=== PATIENT | male | born 1945 | race African-American/Black ===

== ENCOUNTER 2019-12-10 12:19 | Inpatient (IN) | payer OTHER ==
[~2019-12-10] VITALS: Ht 167.6 cm; Wt 85.0 kg
[~2019-12-10 12:19] MED LIST: LISHYD1012 PO; OMEP10ER PO
[2019-12-10] MEDS ORDERED: CHLO25B PO (12:44)
[2019-12-10] MEDS ORDERED: SILD25T PO (12:45)
[2019-12-10] MEDS ORDERED: CLOP75 PO (12:45)
[2019-12-10] MEDS ORDERED: LOSA25 (12:45)
[2019-12-10 13:02] LABS: BASOPHILS ABSOLUTE AUTO 0.03 K/mm3 (0.00-0.23); BASOPHILS PERCENT AUTO 0 % (0-2); EOSINOPHILS ABSOLUTE AUTO 0.08 K/mm3 (0.00-0.68); EOSINOPHILS PERCENT AUTO 1 % (0-6); Hemoglobin 19.3 g/dL (13.5-17.5); IMMATURE GRAN ABSOLUTE AUTO 0.02 K/mm3 (0.00-0.10); IMMATURE GRAN PERCENT AUTO 0 % (0-1); LYMPHOCYTES ABSOLUTE AUTO 3.77 K/mm3 (0.84-5.20); LYMPHOCYTES PERCENT AUTO 34 % (21-46); MONOCYTES ABSOLUTE AUTO 0.67 K/mm3 (0.16-1.47); MONOCYTES PERCENT AUTO 6 % (4-13); Mean Corpuscular HGB 29.8 pg (26.0-34.0); Mean Corpuscular HGB Conc 33.6 g/dL (31.5-36.5); Mean Corpuscular Volume 89 fL (80-100); Mean Platelet Volume 11.3 fL (9.1-12.4); NEUTROPHILS ABSOLUTE AUTO 6.62 K/mm3 (1.96-9.15); NEUTROPHILS PERCENT AUTO 59 % (41-73); Platelet Count 283 K/mm3 (150-400); RDW Coefficient Variation 14.8 % (11.7-14.2); RDW Standard Deviation 44.3 fL (35.1-46.3); Red Blood Cell Count 6.48 M/mm3 (4.30-5.90); White Blood Cell Count 11.19 K/mm3 (4.00-11.30)
[2019-12-10 13:03] LABS: Hematocrit 57.4 % (37.0-53.0)
[2019-12-10 14:43] LABS: Albumin, Blood 3.5 g/dL (3.4-5.0); Calcium, Blood 9.4 mg/dL (8.5-10.1); Potassium, Blood 3.3 mmol/L (3.5-5.5)
[2019-12-10 14:55] LABS: Albumin/Globulin Ratio 0.8 (0.8-1.8); Bilirubin, Total 0.6 mg/dL (0.1-1.0); Bun/Creatinine Ratio 10.9 (12.0-20.0); Creatinine, Blood 1.29 mg/dL (0.60-1.20); Globulin, Blood 4.5 g/dL (2.2-4.0); Troponin I 36.6 ng/mL (0.000-0.040)
[2019-12-10] MEDS ORDERED: Nitrostat0.4 MG SL (15:13)
--- NOTE | 2019-12-10 18:21 | NUR ---
PT ADMITTED TO ICU AT 1805 FROM THE S/P ANGIOGRAM. THE LAD/CIRC/RCA ARE OCCLUDED PER N AND PT WILL NEED TO BE TRANSFERED TO [facility] FOR CABG. PT DENIES C/O CHEST PAIN/CHES PRESSURE. PT DENIES NAUSEA/SOB. PT SOMEWHAT HTN. PT IN SINUS RHYTHM W DEPRESSED ST IN LEAD II. TEAM LEAD AT BEDSIDE. K+ INFUSION COMPLETE.
--- NOTE | 2019-12-10 18:27 | NUR ---
DR CHEN CALLED TO NOTIFY THIS RN THAT PT WILL NOT BE TRANSFERED AT THIS TIME. PLAN IS TO RETURN TO [employer] CHIEF SCIENTIST FOR PCI WITH STENTING OF THE OCCLUDED VESSELS. HEPARIN GTT TO BE STARTED AFTER TR BAND OFF AND WRIST STABLE.
--- NOTE | 2019-12-10 18:51 | NUR ---
Echocardiogram completed.
[2019-12-10 21:59] LABS: International Normalized Ratio 1.03
--- NOTE | 2019-12-10 22:54 | NUR ---
Received pt at 1900 from offgoing RN at bedside. pt participated in bedside report. ITRACE done. No fluids running. Orders clarified with doctor Mikaela Albright.
[2019-12-11 03:34] LABS: BASOPHILS ABSOLUTE AUTO 0.03 K/mm3 (0.00-0.23); BASOPHILS PERCENT AUTO 0 % (0-2); EOSINOPHILS ABSOLUTE AUTO 0.05 K/mm3 (0.00-0.68); EOSINOPHILS PERCENT AUTO 0 % (0-6); Hematocrit 50.8 % (37.0-53.0); Hemoglobin 16.6 g/dL (13.5-17.5); IMMATURE GRAN ABSOLUTE AUTO 0.03 K/mm3 (0.00-0.10); IMMATURE GRAN PERCENT AUTO 0 % (0-1); LYMPHOCYTES ABSOLUTE AUTO 2.45 K/mm3 (0.84-5.20); LYMPHOCYTES PERCENT AUTO 21 % (21-46); MONOCYTES ABSOLUTE AUTO 0.83 K/mm3 (0.16-1.47); MONOCYTES PERCENT AUTO 7 % (4-13); Mean Corpuscular HGB 28.8 pg (26.0-34.0); Mean Corpuscular HGB Conc 32.7 g/dL (31.5-36.5); Mean Corpuscular Volume 88 fL (80-100); Mean Platelet Volume 10.1 fL (9.1-12.4); NEUTROPHILS ABSOLUTE AUTO 8.37 K/mm3 (1.96-9.15); NEUTROPHILS PERCENT AUTO 71 % (41-73); Platelet Count 206 K/mm3 (150-400); RDW Coefficient Variation 13.7 % (11.7-14.2); RDW Standard Deviation 44.4 fL (35.1-46.3); Red Blood Cell Count 5.77 M/mm3 (4.30-5.90); White Blood Cell Count 11.76 K/mm3 (4.00-11.30)
[2019-12-11 03:57] LABS: Alanine Aminotransfer (ALT/SGP 27 U/L (12-78); Albumin, Blood 2.9 g/dL (3.4-5.0); Albumin/Globulin Ratio 0.8 (0.8-1.8); Alk Phos 58 U/L (50-136); Anion Gap 6 mmol/L (6-16); Aspartate Aminotrans (AST/SGOT 41 U/L (12-37); Bilirubin, Total 0.5 mg/dL (0.1-1.0); Blood Urea Nitrogen 17 mg/dL (8-24); Bun/Creatinine Ratio 14.8 (12.0-20.0); CHOL/HDL RATIO 4.7; CO2, Blood 28 mmol/L (21-32); Calcium, Blood 8.6 mg/dL (8.5-10.1); Chloride, Blood 106 mmol/L (98-108); Cholesterol 182 mg/dL (50-200); Creatinine, Blood 1.15 mg/dL (0.60-1.20); Globulin, Blood 3.8 g/dL (2.2-4.0); Glomerular Filtration Rate >60 (60-); Glucose, Blood 120 mg/dL (70-99); HDL Cholesterol 39 mg/dL (>39); LDL/HDL RATIO 2.8; Low Density Lipoprotein Chol 110 mg/dL (0-110); Potassium, Blood 3.1 mmol/L (3.5-5.5); Sodium, Blood 140 mmol/L (136-145); Total Protein, Blood 6.7 g/dL (6.4-8.2); Triglycerides 165 mg/dL (30-160); Very Low Density Lipoprot Chol 33 mg/dL (6-32)
--- NOTE | 2019-12-11 06:22 | NUR ---
PT SLEEPING IN BETWEEN FREQUENT CHECKS. PT TURNS SELF FREQUENTLY, IS NOW SLEEPING WITH MULTIPLE PILLOWS. ARMBOARD STILL AT RADIAL SITE, WILL REMOVE WITH HOURLY CHECKS AND NEXT RN TOGETHER. HEPARIN GTT RUNNING IN LEFT AC, NORMAL SALINE INTO RIGHT AC.
--- NOTE | 2019-12-11 08:23 | NUR ---
ASSUMED CARE RECEIVED REPORT FROM MYLENE KNUTSON. PT IS ALERT AND ORIENTED TO SELF, PLACE, SITUATION AND IS LYING IN BED S/P CATH. HIS RIGHT RADIAL SITE LOOKS WNL, NO HEMATOMA FORMATION, 2+ PULSE, NO PAIN OUT OF PROPORTION, BUT IS TENDER. NO ACTIVE BLEEDING. HE HAS NUMBNESS TINGLING THAT IS PRESENT AT BASELINE. PT IS ON ROOM AIR. STABLE VITALS, ALTHOUGH ELEVATED BP. BED LOW AND LOCKED. CALL LIGHT WITHIN REACH.
--- NOTE | 2019-12-11 18:11 | NUR ---
SHIFT SUMMARY PT REMAINS ALERT AND ORIENTED X 4. ON ROOM AIR. RIGHT RADIAL SITE IS WNL. HE IS INDEPENDENT IN BED/ROOM, VOIDING ADEQUETLY. GOOD APPETITE. HE IS ON A HEPARIN GTTP AT 15 UNITS/KG/HR. BED LOW AND LOCKED. CALL LIGHT WITHIN REACH.
--- NOTE | 2019-12-12 02:46 | NUR ---
START OF SHIFT: BEDSIDE REPORT FROM ESTUARDO CHAKRABORTY AT CHANGE OF SHIFT. PT A+O X4 WATCHING TV. VSS. LS CLEAR, SATS 100% ON RA. PT WITH NO REQUESTS AT THAT TIME AND USES CALL LIGHT APPROPRIATELY FOR WHEN NEEDING TO VOID. PT STANDS AT SIDE OF BED TO USE URINAL AND TOLERATES WELL. PT WITH VERBAL UNDERSTANDING OF UPCOMING PROCEDURE. PT NPO AFTER MIDNIGHT. CALL LIGHT WITHING REACH.
[2019-12-12 09:02] LABS: BASOPHILS ABSOLUTE AUTO 0.03 K/mm3 (0.00-0.23); BASOPHILS PERCENT AUTO 0 % (0-2); EOSINOPHILS ABSOLUTE AUTO 0.17 K/mm3 (0.00-0.68); EOSINOPHILS PERCENT AUTO 2 % (0-6); Hemoglobin 15.8 g/dL (13.5-17.5); IMMATURE GRAN ABSOLUTE AUTO 0.02 K/mm3 (0.00-0.10); IMMATURE GRAN PERCENT AUTO 0 % (0-1); LYMPHOCYTES ABSOLUTE AUTO 3.17 K/mm3 (0.84-5.20); LYMPHOCYTES PERCENT AUTO 34 % (21-46); MONOCYTES ABSOLUTE AUTO 0.65 K/mm3 (0.16-1.47); MONOCYTES PERCENT AUTO 7 % (4-13); Mean Corpuscular HGB 29.9 pg (26.0-34.0); Mean Corpuscular HGB Conc 33.6 g/dL (31.5-36.5); Mean Corpuscular Volume 89 fL (80-100); Mean Platelet Volume 10.3 fL (9.1-12.4); NEUTROPHILS ABSOLUTE AUTO 5.24 K/mm3 (1.96-9.15); NEUTROPHILS PERCENT AUTO 57 % (41-73); Platelet Count 180 K/mm3 (150-400); RDW Coefficient Variation 13.7 % (11.7-14.2); RDW Standard Deviation 44.4 fL (35.1-46.3); Red Blood Cell Count 5.29 M/mm3 (4.30-5.90); White Blood Cell Count 9.28 K/mm3 (4.00-11.30)
[2019-12-12 09:21] LABS: Anion Gap 5 mmol/L (6-16); Blood Urea Nitrogen 14 mg/dL (8-24); CO2, Blood 28 mmol/L (21-32); Calcium, Blood 8.9 mg/dL (8.5-10.1); Chloride, Blood 107 mmol/L (98-108); Creatinine, Blood 1.08 mg/dL (0.60-1.20); Glomerular Filtration Rate >60 (60-); Glucose, Blood 92 mg/dL (70-99); Potassium, Blood 3.4 mmol/L (3.5-5.5); Sodium, Blood 140 mmol/L (136-145)
--- NOTE | 2019-12-12 09:25 | NUR ---
CARE ASSUMED CARE AND REPORT ASSUMED FROM ADARSH Muller RN. PT SITTING UP IN BED. DENIES CHEST PAIN; DENIES PAIN. R WRIST PUNCTURE SITE C/D/I. ARMBOARD REMOVED. PT C/O NUMBNESS AND TINGLING AT BASELINE FROM PREVIOUS CVA. SEEN BY APRIL THIS AM, CONSENTS SIGNED, AWAITING PATROL MAN. VSS. HEPARIN GTT INFUSING AT 15 UNITS/HR PER ORDER. NSR, HR 70S. BP WNL. BP MEDS HELD THIS AM DUE TO BP 120/70S. WILL CONTINUE TO MONITOR.
--- NOTE | 2019-12-12 12:02 | NUR ---
TRANSFERRED TO HOME APPLIANCE WASHING MACHINE MECHANIC 1130 - PT TRANSFERRED TO HOME APPLIANCE WASHING MACHINE MECHANIC BY HOME APPLIANCE WASHING MACHINE MECHANIC RN. HEPARIN GTT AND K+ REPLACEMENT INFUSING UPON UNIT EXIT.
--- NOTE | 2019-12-12 14:23 | NUR ---
RETURN FROM BANKRUPTCY LEGAL ASSISTANT 1350 - PT RETURNS FROM BANKRUPTCY LEGAL ASSISTANT. VSS. TR BAND INFLATED AND SECURED WITH ARMBOARD. BLEEDING CONTROLLED AND PULSES PALPABLE. DENIES CHEST PAIN. HEPARIN DISCONTINUED. POTASSIUM REPLACEMENT FINISHING INFUSION. WILL CONTINUE TO MONITOR.
--- NOTE | 2019-12-12 18:22 | NUR ---
SHIFT SUMMARY PT WAS NPO THIS AM UNTIL HE WAS SENT TO SIDE GLUER AT 1130. HE ARRIVED BACK IN THE UNIT AT 1350 WITH TR BAND SECURED. HEPARIN GTT DISCONTINUED AT THIS TIME. TR BAND REMOVED AT 1600 AND DRESSING APPLIED. ARM REMAINS SECURED IN ARMBOARD AND PT AWARE OF NOT MOVING THE ARM. VSS. NSR, HR 80S. PT NOW COMPLAINS OF MILD CENTRAL CHEST PAIN, 3/10. TYLENOL PO GIVEN. AFEBRILE THROUGHOUT SHIFT. WILL GIVE BEDSIDE, HANDOFF REPORT TO MITCHEL RN.
--- NOTE | 2019-12-12 20:10 | NUR ---
ASSUMED CARE OF PT AT 1900. PT SITTING UP IN BED, IN GOOD SPIRITS, JOKING WITH STAFF. PT STATES ONL RESIDUAL SORENESS IN CHEST AND PROCEDURE SITE, RIGHT RADIAL.
[2019-12-13 03:54] LABS: BASOPHILS ABSOLUTE AUTO 0.03 K/mm3 (0.00-0.23); BASOPHILS PERCENT AUTO 0 % (0-2); EOSINOPHILS ABSOLUTE AUTO 0.23 K/mm3 (0.00-0.68); EOSINOPHILS PERCENT AUTO 3 % (0-6); Hematocrit 46.8 % (37.0-53.0); Hemoglobin 15.3 g/dL (13.5-17.5); IMMATURE GRAN ABSOLUTE AUTO 0.02 K/mm3 (0.00-0.10); IMMATURE GRAN PERCENT AUTO 0 % (0-1); LYMPHOCYTES ABSOLUTE AUTO 3.13 K/mm3 (0.84-5.20); LYMPHOCYTES PERCENT AUTO 34 % (21-46); MONOCYTES ABSOLUTE AUTO 0.68 K/mm3 (0.16-1.47); MONOCYTES PERCENT AUTO 7 % (4-13); Mean Corpuscular HGB 29.1 pg (26.0-34.0); Mean Corpuscular HGB Conc 32.7 g/dL (31.5-36.5); Mean Corpuscular Volume 89 fL (80-100); Mean Platelet Volume 10.8 fL (9.1-12.4); NEUTROPHILS ABSOLUTE AUTO 5.19 K/mm3 (1.96-9.15); NEUTROPHILS PERCENT AUTO 56 % (41-73); Platelet Count 181 K/mm3 (150-400); RDW Coefficient Variation 13.5 % (11.7-14.2); RDW Standard Deviation 44.4 fL (35.1-46.3); Red Blood Cell Count 5.25 M/mm3 (4.30-5.90); White Blood Cell Count 9.28 K/mm3 (4.00-11.30)
[2019-12-13 04:14] LABS: Anion Gap 7 mmol/L (6-16); Blood Urea Nitrogen 13 mg/dL (8-24); Bun/Creatinine Ratio 13.1 (12.0-20.0); CO2, Blood 28 mmol/L (21-32); Calcium, Blood 8.7 mg/dL (8.5-10.1); Chloride, Blood 105 mmol/L (98-108); Creatinine, Blood 0.99 mg/dL (0.60-1.20); Glomerular Filtration Rate >60 (60-); Glucose, Blood 96 mg/dL (70-99); Potassium, Blood 3.3 mmol/L (3.5-5.5); Sodium, Blood 140 mmol/L (136-145)
--- NOTE | 2019-12-13 05:42 | NUR ---
PT SLEPT MOST OF SHIFT, TURNS SELF INDEPENDENTLY, WAS IN A PLEASANT MOOD WHILE AWAKE. ARMBOARD REMAINED IN PLACE, TENDERNESS DECREASING, DRESSING CDI ON RIGHT RADIAL.
--- NOTE | 2019-12-13 11:00 | NUR ---
DR CHEN: DR LLAMAS TO SEE THE PT. ORDERS FOR PT TO BE UP WALKING AROUND THE UNIT TO MAKE SURE PT DOESN'T HAVE ANY CHEST PAIN OR ADVERSE EFFECTS. THEN STATES IF ALL GOES WELL WE WILL DISCHARGE THIS AFTERNOON. PT RECEIVED MORNING MEDICATIONS AND EDUCATED ON MEDS. PT EATING BREAKFAST AT THIS TIME THEN WILL GET HIM UP AND WALKING AROUND.
--- NOTE | 2019-12-13 12:20 | NUR ---
SHOWER AND WALKING: PT UP TO THE TOILET TO HAVE A BM. THEN UP TO THE SINK TO BRUSH HIS TEETH. PT WALKED TO THE SHOWER COMPLEATE HIS SHOWER INDEPENDENTLY, WALKED BACK TO HIS ROOM INDEPENDENLY WITH NO ACUTE DISTRESS NOTED. PT DENIES ANY CHEST PAIN OR PRESSURE AT THIS TIME.
--- NOTE | 2019-12-13 12:36 | NUR ---
FOLLOW UP APPOINTMENT: CALLED THE [facility] TO SCHEDULE PT FOLLOW UP APPOINTMENT WITH DR CHEN, BUT UNABLE TO AT THIS TIME D/T PT [facility]AVING [facility]. ASHLEY NOTIFIED AND SHE WILL SEND OFF FOR THE AUTHORIZATION FOR FOLLOW UP APPOINTMENT AND THE CARDIAC REHAB.
--- NOTE | 2019-12-13 12:40 | NUR ---
PERSCRIPTIONS: FAXED PERSCRIPTION SHEET [facility] TO [facility] FOR MEDICATIONS TO BE FILLED.
[2019-12-13] MEDS ORDERED: ATOR40TA PO (13:20)
[2019-12-13] MEDS ORDERED: ASPI81CH PO (13:20)
[2019-12-13] MEDS ORDERED: METO50 PO (13:22)
[2019-12-13] MEDS ORDERED: POTA10T PO (13:22)
--- NOTE | 2019-12-13 14:39 | NUR ---
DISCHARGE: PT DISCHARGED TO HOME. PT ADVOCATE [employer]OTT FOR PT TO GET [facility]. EDUCATED PT ON HIS DISCHARGE INFORMATION, NEW MEDS AND MEDICATIONS TO STOP. PT STATES VERBAL UNDERSTANDING. THIS RN WALKED WITH PT TO THE PT ENTRANCE WHERE THE SPINNER OPEN END JUST ARRIVED WELL. NO ACUTE DISTRESS NOTED.
== END 2019-12-13 14:30 | disposition home or self-care (01) | DRG 247 ==
LOC: ER 12:19 → ICUE 16:18
PROVIDERS: Emergency Medicine; ADMIT Internal Medicine Interventional Cardiology
PROC: 4A023N7 Measurement of Cardiac Sampling and Pressure, Left Heart, Percutaneous Approach (ICD-10-PCS; 2019-12-10)
PROC: B2111ZZ Fluoroscopy of Multiple Coronary Arteries using Low Osmolar Contrast (ICD-10-PCS; 2019-12-10)
PROC: 027136Z Dilation of Coronary Artery, Two Arteries with Three Drug-eluting Intraluminal Devices, Percutaneous Approach (ICD-10-PCS; principal; 2019-12-12)
DX: I21.4 Non-ST elevation (NSTEMI) myocardial infarction (principal); I25.10 Atherosclerotic heart disease of native coronary artery without angina pectoris; I10 Essential (primary) hypertension; E87.6 Hypokalemia; K21.9 Gastro-esophageal reflux disease without esophagitis; E78.5 Hyperlipidemia, unspecified; D75.1 Secondary polycythemia; T50.2X5A Adverse effect of carbonic-anhydrase inhibitors, benzothiadiazides and other diuretics, initial encounter; Z86.73 Personal history of transient ischemic attack (TIA), and cerebral infarction without residual deficits; Z87.891 Personal history of nicotine dependence; Z79.02 Long term (current) use of antithrombotics/antiplatelets; Z79.899 Other long term (current) drug therapy
CPT/HCPCS: 36415; 71046; 80048; 80053; 80061; 83735; 84484; 85025; 85347; 85610; 85730; 92978; 92979; 93005; 93010; 93306; 93454; 93458; 93571; 93572; 99152; 99153; 99285-25; A9270; A9270-GY; C1725; C1753; C1769; C1874; C1887; C1894; C9600; C9601; J1644; J1650; J2250; J3010; J3480; J7030; J7040; J7050; Q9967